=== PATIENT | female | born 1985 | race Caucasian/White ===

== ENCOUNTER 2019-03-22 19:52 | Emergency (ER) | payer BC ==
[~2019-03-22] VITALS: Ht 154.9 cm; Wt 67.7 kg
[~2019-03-22 19:52] MED LIST: CALCIUM 500 W/V1 TAB PO; HUMALOG100 U/ML SC; HUMULIN N100 U/ML SC; LABETALOL100 MG PO; PRENATAL VITAMI1 TAB PO; aldomet PO
[2019-03-22 19:58] VITALS: TEMP 97.3
[2019-03-22] MEDS ORDERED: [UNRECOGNIZED DRUG - OTHER] (20:09)
[2019-03-22 21:05] LABS: BASO % 0.4 % (0.0-2.0); EOS # 0.1 (0.0-0.7); EOS % 1.5 % (0-4.0); GRAN # 3.3 (1.4-6.5); GRAN % 48.9 % (42.2-75.2); LYMPH # 2.8 (1.2-3.4); LYMPH % 42.2 % (20.0-51.0); MEAN CELL VOLUME 90 fl (80.0-100.0); MEAN CORPUSCULAR HEMOGLOBIN 31 pg (27.0-31.0); MEAN CORPUSCULAR HGB CONC 34 g/dl (33.0-37.0); MEAN PLATELET VOLUME 10.3 fl (7.4-10.4); MONO # 0.5 (0.1-0.6); MONO % 6.9 % (1.7-9.3); PLATELET COUNT 259 K/mm3 (130-400); RED BLOOD COUNT 4.87 M/mm3 (4.10-5.30)
[2019-03-22 21:15] LABS: ALANINE AMINOTRANSFERASE 17 U/L (9-52); ALBUMIN 4.4 gm/dL (3.5-5.0); ALKALINE PHOSPHATASE 52 U/L (50-136); ANION GAP 11 mmol/L (7-16); AST,SGOT 18 U/L (15-37); BILIRUBIN,TOTAL 0.6 mg/dL (0.0-1.0); BLOOD UREA NITROGEN 13 mg/dL (7-17); CALCIUM 9.6 mg/dL (8.4-10.2); CARBON DIOXIDE 25 mmol/L (22-30); CHLORIDE 110 mmol/L (98-107); CREATININE, serum 0.72 (0.52-1.25); GLUCOSE 98 mg/dL (74-106); LIPASE 433 U/L (23-300); POTASSIUM 3.7 mmol/L (3.4-5.0); SODIUM 147 mmol/L (137-145); TOTAL PROTEIN 7.7 gm/dL (6.4-8.2)
[2019-03-22 21:27] LABS: TROPONIN-I < 0.012 ng/mL (0.000-0.035)
[2019-03-22] MEDS ORDERED: NAPROXEN 3375 MG/TAB PO (22:37)
[2019-03-22 22:45] VITALS: BP 126/74; PULSE 93
== END 2019-03-22 23:03 | disposition home or self-care (01) ==
LOC: COL.ER 19:52
PROVIDERS: Emergency Medicine
DX: R07.89 Other chest pain (principal); Z79.82 Long term (current) use of aspirin

== ENCOUNTER → 2019-07-14 | Outpatient (CLI) | payer BC ==
[~2019-07-14] MED LIST changes: +NAPROXEN 3375 MG/TAB PO; +[UNRECOGNIZED DRUG - OTHER]
== END ==
LOC: COL.RAD 13:30
DX: Z13.6 Encounter for screening for cardiovascular disorders (principal); I80.3 Phlebitis and thrombophlebitis of lower extremities, unspecified

== ENCOUNTER → 2019-09-08 | Outpatient (CLI) | payer BC | LOC: COL.RAD 08:23 | DX: N20.0 Calculus of kidney (principal); K57.30 Diverticulosis of large intestine without perforation or abscess without bleeding; M89.9 Disorder of bone, unspecified; R11.0 Nausea; R06.02 Shortness of breath | CPT/HCPCS: Q9967 ==

== ENCOUNTER 2020-08-28 15:49 | Emergency (ER) | payer BC ==
[~2020-08-28] VITALS: Ht 165.1 cm; Wt 55.5 kg
[2020-08-28 16:00] VITALS: TEMP 98.5
[2020-08-28 16:27] LABS: BASO % 0.2 % (0.0-2.0); EOS # 0.1 (0.0-0.7); EOS % 1.6 % (0-4.0); GRAN # 2.3 (1.4-6.5); GRAN % 47.2 % (42.2-75.2); HEMOGLOBIN 14.5 g/dl (12.5-16.0); LYMPH # 2.2 (1.2-3.4); LYMPH % 44.3 % (20.0-51.0); MEAN CELL VOLUME 91 fl (80.0-100.0); MEAN CORPUSCULAR HEMOGLOBIN 31 pg (27.0-31.0); MEAN CORPUSCULAR HGB CONC 35 g/dl (33.0-37.0); MEAN PLATELET VOLUME 9.9 fl (7.4-10.4); MONO # 0.3 (0.1-0.6); MONO % 6.5 % (1.7-9.3); PLATELET COUNT 296 K/mm3 (130-400); RED BLOOD COUNT 4.64 M/mm3 (4.10-5.30); REDCELL DISTRIBUTION WIDTH-CV 11.5 % (11.5-14.5)
[2020-08-28 16:43] LABS: ALANINE AMINOTRANSFERASE 30 U/L (4-34); ALBUMIN 4.6 gm/dL (3.5-5.0); ALKALINE PHOSPHATASE 62 U/L (50-136); ANION GAP 10 mmol/L (7-16); AST,SGOT 31 U/L (15-37); BILIRUBIN,TOTAL 0.8 mg/dL (0.0-1.0); BLOOD UREA NITROGEN 11 mg/dL (7-17); C-REACTIVE PROTEIN < 0.5 mg/dL (0.0-0.9); CALCIUM 9.1 mg/dL (8.4-10.2); CARBON DIOXIDE 24 mmol/L (22-30); CHLORIDE 110 mmol/L (98-107); CREATINE KINASE 65 U/L (30-135); CREATININE, serum 0.65 (0.52-1.25); GLUCOSE 101 mg/dL (74-106); PHOSPHOROUS 3.1 mg/dL (2.5-4.5); POTASSIUM 3.9 mmol/L (3.4-5.0); SODIUM 144 mmol/L (137-145)
[2020-08-28 17:10] LABS: THYROID STIMULATING HORMONE 0.918 uIU/mL (0.465-4.680)
[2020-08-28] MEDS ORDERED: VALIUM 5MG T5 MG/TAB PO (18:59)
[2020-08-28 19:13] VITALS: BP 133/84; PULSE 112
== END 2020-08-28 19:18 | disposition home or self-care (01) ==
LOC: COL.ER 15:49
PROVIDERS: Emergency Medicine
DX: R25.1 Tremor, unspecified (principal); Z90.49 Acquired absence of other specified parts of digestive tract
CPT/HCPCS: J2060; J7030; Q9967

== ENCOUNTER 2020-10-26 09:20 | Observation (INO) | payer OTHER ==
[~2020-10-26] VITALS: Ht 154.9 cm; Wt 60.7 kg
[~2020-10-26 09:20] MED LIST changes: +VALIUM 5MG T5 MG/TAB PO
[2020-10-26 09:40] LABS: BASO % 0.6 % (0.0-2.0); EOS # 0.1 (0.0-0.7); EOS % 1.8 % (0-4.0); GRAN # 2.6 (1.4-6.5); GRAN % 50.6 % (42.2-75.2); HEMATOCRIT 42.4 % (37.0-47.0); HEMOGLOBIN 14.4 g/dl (12.5-16.0); LYMPH # 2.1 (1.2-3.4); LYMPH % 40.1 % (20.0-51.0); MEAN CELL VOLUME 92 fl (80.0-100.0); MEAN CORPUSCULAR HEMOGLOBIN 31 pg (27.0-31.0); MEAN CORPUSCULAR HGB CONC 34 g/dl (33.0-37.0); MEAN PLATELET VOLUME 9.9 fl (7.4-10.4); MONO # 0.3 (0.1-0.6); MONO % 6.7 % (1.7-9.3); PLATELET COUNT 287 K/mm3 (130-400); REDCELL DISTRIBUTION WIDTH-CV 11.8 % (11.5-14.5)
[2020-10-26 09:46] LABS: PROTHROMBIN TIME 10.9 SECONDS (9.7-12.8)
[2020-10-26 09:49] LABS: PARTIAL THROMBOPLASTIN TIME 30.4 SECONDS (26.0-37.0)
[2020-10-26 09:51] LABS: ALANINE AMINOTRANSFERASE 32 U/L (4-34); ALBUMIN 4.3 gm/dL (3.5-5.0); ALKALINE PHOSPHATASE 55 U/L (50-136); ANION GAP 6 mmol/L (7-16); AST,SGOT 39 U/L (15-37); BILIRUBIN,TOTAL 0.6 mg/dL (0.0-1.0); BLOOD UREA NITROGEN 10 mg/dL (7-17); CALCIUM 9.4 mg/dL (8.4-10.2); CARBON DIOXIDE 29 mmol/L (22-30); CHLORIDE 110 mmol/L (98-107); CREATININE, serum 0.65 (0.52-1.25); GLUCOSE 130 mg/dL (74-106); POTASSIUM 3.8 mmol/L (3.4-5.0); SODIUM 145 mmol/L (137-145); TOTAL PROTEIN 7.5 gm/dL (6.4-8.2)
[2020-10-26 10:04] LABS: TROPONIN-I < 0.012 ng/mL (0.000-0.035)
[2020-10-26 11:17] LABS: COLLECTION METHOD CLEAN CATCH
[2020-10-26 11:40] LABS: PH 6 (5-8); SQUAMOUS EPITHELIAL 0-2 /hpf; URINE APPEARANCE Clear; URINE BACTERIA None Seen /hpf; URINE BILIRUBIN Negative (NEGATIVE); URINE BLOOD Negative (NEGATIVE); URINE COLOR Colorless; URINE GLUCOSE Negative (NEGATIVE); URINE KETONE Negative (NEGATIVE); URINE LEUKOCYTE ESTERASE Negative (NEGATIVE); URINE NITRATE Negative (NEGATIVE); URINE PROTEIN(semi-quant) Negative (NEGATIVE); URINE RBC None Seen /hpf; URINE UROBILINOGEN Negative (NEGATIVE)
--- NOTE | 2020-10-26 17:24 | NUR ---
DR. POLANCO AT BEDSIDE AT THIS TIME EXAMINING PT.
[2020-10-26 17:37] VITALS: BP 133/94; PULSE 84; TEMP 97.9
[2020-10-26 19:47] VITALS: BP 117/79; PULSE 87; TEMP 98.5
--- NOTE | 2020-10-26 19:50 | NUR ---
Patient assessed at this time. Alert and oriented x 4, and able to make needs known. Denies having pain and discomfort at this time. Peripheral INT to right AC flushed. Site without redness, warmth, swelling, and pain. Reports SOB. LS CTA. Respirations even and unlabored. SPO2 95% on room air. Patient reports her SOB and dyspnea comes and goes at various times, resting and with exertion. HRR. Telemetry in place: sinus. Capillary refill less than 3 seconds. Non-tenting skin turgor. BSAx4. Abdomen soft and non-tender. No edema. Patient has studdering/slow speach most of the time. Ambulated to bathroom with one assist. Had merchandise processor weak, but equal. Gait very unsteady. High fall risk precautions initiated, and education provided on fall precautions to patient, who voiced understanding. Voices no questions, needs, or concerns at this time. Resting in bed with call light within reach.
[2020-10-27 00:23] VITALS: BP 112/64; PULSE 87; TEMP 98.1
[2020-10-27 04:05] VITALS: BP 108/61; PULSE 85; TEMP 98.2
--- NOTE | 2020-10-27 06:26 | NUR ---
Patient has voiced no questions, needs, or concerns this shift. Has been resting in bed with call light within reach. High fall risk precautions in place.
[2020-10-27 06:36] LABS: CREATININE, serum 0.63 (0.52-1.25); POTASSIUM 4.1 mmol/L (3.4-5.0)
[2020-10-27 06:40] LABS: BASO % 0.5 % (0.0-2.0); EOS # 0.1 (0.0-0.7); EOS % 2.9 % (0-4.0); GRAN % 47.5 % (42.2-75.2); HEMATOCRIT 38.3 % (37.0-47.0); HEMOGLOBIN 12.8 g/dl (12.5-16.0); LYMPH # 1.8 (1.2-3.4); LYMPH % 42.2 % (20.0-51.0); MEAN CELL VOLUME 92 fl (80.0-100.0); MEAN CORPUSCULAR HEMOGLOBIN 31 pg (27.0-31.0); MEAN CORPUSCULAR HGB CONC 33 g/dl (33.0-37.0); MEAN PLATELET VOLUME 10.4 fl (7.4-10.4); MONO # 0.3 (0.1-0.6); MONO % 6.7 % (1.7-9.3); PLATELET COUNT 255 K/mm3 (130-400); RED BLOOD COUNT 4.17 M/mm3 (4.10-5.30); REDCELL DISTRIBUTION WIDTH-CV 11.8 % (11.5-14.5)
[2020-10-27 08:00] VITALS: BP 103/71; PULSE 70; TEMP 98.4
[2020-10-27 08:53] LABS: CHOLESTEROL RISK RATIO 3.6
--- NOTE | 2020-10-27 09:23 | NUR ---
Initial visit; Patient thanked Log Cooker for looking in on her and offering encouragement and God's blessings. Log Cooker will follow up while Diandra is a patient here.
[2020-10-27 09:37] LABS: HIV 1/2 Antibodies Non-Reactive; HIV-1p24 Antigen Non-Reactive
--- NOTE | 2020-10-27 10:17 | NUR ---
Pt assessment completed and charted. pt laying in bed, worked w/ therapy using walker and gait belt. pt has unsteady gait. pt A&O. On room air, breathing is even and unlabored. pt c/o some chest tightness and pain in her ribs, vision changes, double vision, all symptoms that have been occuring since AUG. Pt has 20G RAC IV that flushes well. pt on tele. Bed alarm, call light within reach. pt to have LP and MRI of L/T/C spine today. Pt instructed to use call light for assistance, verbalized understanding. Pt denies dizziness, N/V/D, SOB.
--- NOTE | 2020-10-27 10:49 | NUR ---
Consent signed for LP, pt verbalizes understanding. This nurse spoke w/ MRI. Pt to possibly have MRIs after LP.
--- NOTE | 2020-10-27 11:14 | NUR ---
Pt down for LP at this time.
[2020-10-27 11:45] LABS: TOTAL PROTEIN,CSF 35 mg/dL (15-45)
--- NOTE | 2020-10-27 11:53 | NUR ---
SW met with the patient to discuss discharge plan. The patient lives in [place] with her , Jay ([id number]#[phone]), and two children. She reports independence with ADLs and does not have any DME. The patient's primary care provider is FRIEDA Sanchez and she receives her medications from [facility] in [place]. She reports no difficulties obtaining her meds. The patient does not have a DPOA-HC, but she was interested in obtaining a form. SW provided. The patient plans to return home with her family upon discharge. SW attempted to contact the patient's , Jay, to review d/c plan. SW left him message. PT is recommending a walker. SW to follow up with the patient about this.
[2020-10-27 11:54] LABS: CSF APPEARANCE CLEAR; CSF COLOR COLORLESS
[2020-10-27 11:55] LABS: CSF RBC < 1 /mm3 (0-0)
[2020-10-27 12:00] VITALS: BP 125/84; PULSE 68; TEMP 98.2
--- NOTE | 2020-10-27 12:10 | NUR ---
The patient's , Jay, returned HOANG's phone call. PT is also recommending IPR vs home with outpatient therapy. HOANG informed Jay of this. Jay states that he needs to talk to the patient and see what she wants to do and will then call HOANG back.
[2020-10-27 13:00] LABS: CSF MONONUCLEAR 0 % (70-100); CSF POLYMORPHONUCLEAR 0 % (0-6)
[2020-10-27 17:06] VITALS: BP 130/73; PULSE 72; TEMP 98.3
[2020-10-27 19:19] VITALS: BP 118/74; PULSE 79; TEMP 98.3
--- NOTE | 2020-10-27 21:59 | NUR ---
Patient A/O x4. Patient c/o aching pain 5/10 to her back. Patient denies chest pain or SOB. Assisted patient to the bathroom. Patient ambulated with a walker with unsteady gait. 1 person minimal assist needed. Lumbar puncture covered with band-aid and C/D/I. Right AC IV site has no s/s of complications. PRN Tylenol and scheduled meds given per order. Call light within reach. Patient denies any needs at this time.
[2020-10-28 00:30] VITALS: BP 115/76; PULSE 65; TEMP 98.3
[2020-10-28 03:34] VITALS: BP 114/70; PULSE 65; TEMP 98.1
--- NOTE | 2020-10-28 05:53 | NUR ---
Patient states has some minor pain to her back. Denies need for pain medication. States feeling weak and tired. Stuttering /slow speech throughout the shift. Call ligth within reach. Denies any needs at this time.
[2020-10-28 07:32] VITALS: BP 122/80; PULSE 81; TEMP 98.4
--- NOTE | 2020-10-28 09:54 | NUR ---
HOANG met with the patient to follow up on preference for IPR vs home with outpatient therapy. The patient states that she wants to go home, but would be open to outpatient therapy at [facility]. HOANG to schedule appointments and order the FWW.
--- NOTE | 2020-10-28 09:59 | NUR ---
Pt assessment completed and charted, medication admininstered per jan. Pt A&O, using walker and 1assist for ambulation. Pt has RAC IV that flushes well. Pt denies SOB, on room air, breathing is even and unlabored. Pt denies dizziness, N/V/D, chest pain. pt toelrated working w/ PT well. Pt denies any back pain from LP yesterday. Bandaid covering site, low middle back, CDI. Psych consult completed, no further needs at this time. pt assisted to bathroom w/ walker. bed alarm on, call light within reach.
[2020-10-28] MEDS ORDERED: ZOLOFT 25MG25 MG PO (10:34)
[2020-10-28] MEDS ORDERED: VITAMIN D31000 I1 PO (10:35)
--- NOTE | 2020-10-28 10:49 | NUR ---
The patient is ready to d/c today, 10/28. HOANG contacted and updated the patient's , Jay. Jay would like to get the FWW from [facility] and he states that he can pick it up from there. He is also in agreement to outpatient therapy at [facility] and [facility]. HOANG contacted and faxed the patient's FWW order to [facility]. HOANG contacted [facility] and [facility]. The receptionist nurse reports that they receive the orders and then contact the patient to schedule a time. HOANG faxed the patient's demographics and d/c orders to [facility] and [facility]. HOANG met with the patient to update. The patient verbalized understanding. The patient is to discharge back home with her family today, 10/28, with outpatient PT/OT/ST from [facility]. No additional needs at this time.
[2020-10-28 12:24] VITALS: BP 121/78; PULSE 63; TEMP 98.1
--- NOTE | 2020-10-28 14:21 | NUR ---
Pt discharge instructions discussed and reviewed w/ patient who verbalized understanding, all questions answered. RAC INT IV dc'd w/ catheter tip intact and no further needs. pt escorted out via WC by this nurse. Parents waiting at ER entrance to drive patient home.
[2020-10-28 19:27] LABS: CADMIUM BLOOD <0.2 ng/mL (<5.0); LEAD,SERUM** <1.0 mcg/dL (<5.0); MERCURY,SERUM <1 ng/mL (<10)
[2020-10-28 19:53] LABS: ANGIOTENSIN CONVERTING ENZYME 23 U/L (16 - 85)
[2020-10-29 13:52] LABS: HSV 2 DNA PCR QUAL Not Detected (())
[2020-10-29 14:35] LABS: A/G RATIO (PEP) 1.03 (()); BETA GLOBULINS (PEP) 0.9 g/dL (0.7-1.2)
[2020-11-01 15:25] LABS: CSF OLIG BD INTERPRETATION 0 bands (<2); CSF OLIGOCLONAL BANDING 0 bands (()); SE OLIGOCLONAL BANDING 0 bands (())
== END 2020-10-28 14:22 | disposition home or self-care (01) ==
LOC: COL.ER 09:20 → MEDICAL 11:55
PROVIDERS: Family Medicine; Physician Assistant; Psychiatry & Neurology Neurology; Student in an Organized Health Care Education/Training Program; ADMIT Hospitalist
DX: R07.89 Other chest pain (principal); R27.0 Ataxia, unspecified; F41.1 Generalized anxiety disorder; E55.9 Vitamin D deficiency, unspecified; Z91.018 Allergy to other foods; E11.65 Type 2 diabetes mellitus with hyperglycemia; G43.909 Migraine, unspecified, not intractable, without status migrainosus; Z90.49 Acquired absence of other specified parts of digestive tract
CPT/HCPCS: A9585; J1885; J2060; J7030

== ENCOUNTER → 2020-11-18 | Outpatient (CLI) | payer OTHER ==
[~2020-11-18] MED LIST changes: +VITAMIN D31000 I1 PO; +ZOLOFT 25MG25 MG PO
== END ==
LOC: COL.RAD 12:22
DX: R10.9 Unspecified abdominal pain (principal); R74.8 Abnormal levels of other serum enzymes
CPT/HCPCS: A9585